=== PATIENT | female | born 1945 | race Two or more races ===

== ENCOUNTER 2017-02-06 21:05 | Emergency (ER) | payer OTHER ==
[~2017-02-06] VITALS: Ht 165.1 cm; Wt 99.8 kg
[2017-02-06 21:37] VITALS: BP 140/77
[2017-02-06] MEDS ORDERED: IBUPROFEN 800 MG TAB PO ONE (21:45)
[2017-02-06 22:00] LABS: Basophils # (auto) 0 uL; Basophils % (auto) 0.2 % (0.0-2.0); Eosinophils # (auto) 0 uL; Eosinophils % (auto) 0.3 % (0.0-7.0); Hematocrit 40.3 % (36.0-46.0); Hemoglobin 13.7 g/dL (12.2-16.2); Lymphocytes # (auto) 0.5 uL; Lymphocytes % (auto) 7.6 % (10.0-50.0); Mean Corpuscular Hemoglobin 29.9 pg (28.0-32.0); Mean Corpuscular Hgb Conc. 34.1 g/dL (32.0-36.0); Mean Corpuscular Volume 87.8 fL (80.0-100.0); Mean Platelet Volume 8.2 fL (7.4-10.4); Monocytes # (auto) 0.1 uL; Monocytes % (auto) 2.4 % (0.0-12.0); Neutrophils # (auto) 5.3 uL; Neutrophils % (auto) 89.5 % (37.0-80.0); Platelet Count (auto) 196 10^3/uL (140-450); Red Cell Distribution Width 13.7 % (11.6-16.0); White Blood Cell 5.9 10^3/uL (4.4-10.8)
[2017-02-06 22:25] LABS: Albumin 3.7 g/dL (3.4-5.0); Anion Gap 11 (5-15); Aspartate Aminotransferase 30 U/L (15-37); BUN/Creatinine Ratio 17.9; Blood Urea Nitrogen 12 mg/dL (7-18); Calcium 8.2 mg/dL (8.5-10.1); Carbon Dioxide 25 mmol/L (21-32); Chloride 102 mmol/L (98-107); GFR African American 112 mL/min; GFR Non-African American 92 mL/min; Glucose 135 mg/dL (74-106); Potassium 3.5 mmol/L (3.5-5.1); Sodium 138 mmol/L (136-145)
[2017-02-06 22:29] LABS: Alkaline Phosphatase 67 U/L (45-117); Bilirubin, Total 0.7 mg/dL (0.2-1.0); Total Protein 7.7 g/dL (6.4-8.2)
[2017-02-06 23:17] LABS: INR 1.05 (0.9-1.15); Partial Thromboplastin Time 29.7 sec (22.64-33.71); Prothrombin Time 11.4 sec (9.37-12.3)
== END 2017-02-07 03:37 | disposition left against medical advice (07) ==
LOC: ER 21:24
DX: R50.9 Fever, unspecified (principal); R10.9 Unspecified abdominal pain; R11.2 Nausea with vomiting, unspecified; Z53.21 Procedure and treatment not carried out due to patient leaving prior to being seen by health care provider
CPT/HCPCS: 36415; 80053; 83605; 83735; 84443; 84484; 85025; 85610; 85730; 87040; 93005